=== PATIENT | male | born 1990 | race Caucasian/White ===

== ENCOUNTER 2018-11-06 03:09 | Emergency (ER) | payer SELFPAY ==
[~2018-11-06] VITALS: Ht 190.5 cm; Wt 127.0 kg
--- NOTE | 2018-11-06 04:07 | RAD ---
EXAM: CT HEAD WITHOUT IV CONTRAST CLINICAL HISTORY: Trauma, found down COMPARISON: None. TECHNIQUE: Routine CT of the head without contrast. Soft tissues and bone windows were reviewed. PQRS compliance statement - One or more of the following individualized dose reduction techniques were utilized for this study: 1. Automated exposure control 2. Adjustment of the mA and/or kV according to patient size 3. Use of iterative reconstruction technique FINDINGS: There is no evidence of hemorrhage, mass or extra-axial fluid collection. Fleming-white differentiation is maintained with no evidence of edema. There is no mass effect or shift of the intracranial structures. The ventricles, basilar cisterns and cortical sulci are normal in size and configuration for the patients stated age. The cerebellum and brainstem are unremarkable. The calvarium demonstrates no evidence of fracture or focal lesion. There is normal aeration of the visualized paranasal sinuses and mastoid air cells. The visualized portions of the orbits are normal. IMPRESSION: No evidence for acute intracranial process EXAM: CT CERVICAL SPINE WITHOUT IV CONTRAST CLINICAL HISTORY: COMPARISON: None available. TECHNIQUE: Helical CT of the cervical spine was performed. Axial, coronal and sagittal reformatted images were also performed. PQRS compliance statement - One or more of the following individualized dose reduction techniques were utilized for this study: 1. Automated exposure control 2. Adjustment of the mA and/or kV according to patient size 3. Use of iterative reconstruction technique FINDINGS: Vertebral body heights are preserved. Intervertebral disc heights are preserved. No evidence for acute fracture. No spondylolisthesis. IMPRESSION: 1. No evidence for acute fracture or subluxation. Electronically signed by: Elias Mason MD (11/06/2018 4:05 AM) [place] [id number]
--- NOTE | 2018-11-06 04:19 | PHYS DOC ---
Past Medical History Past Medical History: Unknown Past Surgical History: No Surgical History Alcohol Use: Heavy Drug Use: Marijuana Adult General Chief Complaint Chief Complaint: ALCOHOL INTOXICATION HPI HPI Patient is a 27 year old male presents brought in by ambulance with alcohol intoxication multiple bouts of alcohol were found around him he was laying on his front yard initial GCS was 5 a concerned bystander called current GCS is 14 no trauma was witnessed but the c-collar anyway Review of Systems Review of Systems liu by itnoxication Allergies Allergies Allergies Coded Allergies Type Severity Reaction Last Updated Verified No Known Drug Allergies 11/06/18 No Physical Exam Physical Exam Constitutional: Well developed, well nourished, intoxicated HENT: Normocephalic, atraumatic, bilateral external ears normal, oropharynx moist, no oral exudates, nose normal. [] Eyes: PERRLA, EOMI, conjunctiva normal, no discharge. [] Neck: in ccolar Cardiovascular:Heart rate regular rhythm, no murmur [] Lungs & Thorax: Bilateral breath sounds clear to auscultation [] no ches wall ttp noted Abdomen: Bowel sounds normal, soft, no tenderness, no masses, no pulsatile masses. [] Skin: Warm, dry, no erythema, no rash. [] Except for a small ecchymosis in the left mid forearm with no bony deformity Back: No tenderness, no CVA tenderness. [] Patient was rolled there was no trauma seen Extremities: No tenderness, no cyanosis, no clubbing, ROM intact, no edema. [] Neurologic: Alert and orientedx2, moving all extremities slurred speech consistent with known alcohol intake She also admitted to using marijuana Current Patient Data Vital Signs Vital Signs Date Time Temp Pulse Resp B/P (MAP) Pulse Ox O2 Delivery O2 Flow Rate FiO2 11/06/18 03:15 98.7 115 35 183/109 (133) 96 Room Air 98.7 EKG EKG [] Radiology/Procedures Radiology/Procedures [] Impressions: COMPARISON: None. TECHNIQUE: Routine CT of the head without contrast. Soft tissues and bone windows were reviewed. PQRS compliance statement - One or more of the following individualized dose reduction techniques were utilized for this study: 1. Automated exposure control 2. Adjustment of the mA and/or kV according to patient size 3. Use of iterative reconstruction technique FINDINGS: There is no evidence of hemorrhage, mass or extra-axial fluid collection. Fleming-white differentiation is maintained with no evidence of edema. There is no mass effect or shift of the intracranial structures. The ventricles, basilar cisterns and cortical sulci are normal in size and configuration for the patients stated age. The cerebellum and brainstem are unremarkable. The calvarium demonstrates no evidence of fracture or focal lesion. There is normal aeration of the visualized paranasal sinuses and mastoid air cells. The visualized portions of the orbits are normal. IMPRESSION: No evidence for acute intracranial process EXAM: CT CERVICAL SPINE WITHOUT IV CONTRAST CLINICAL HISTORY: COMPARISON: None available. TECHNIQUE: Helical CT of the cervical spine was performed. Axial, coronal and sagittal reformatted images were also performed. PQRS compliance statement - One or more of the following individualized dose reduction techniques were utilized for this study: 1. Automated exposure control 2. Adjustment of the mA and/or kV according to patient size 3. Use of iterative reconstruction technique FINDINGS: Vertebral body heights are preserved. Intervertebral disc heights are preserved. No evidence for acute fracture. No spondylolisthesis. IMPRESSION: 1. No evidence for acute fracture or subluxation. Electronically signed by: Elias Mason MD (11/06/2018 4:05 AM) [facility] DICTATED and SIGNED BY: ELIAS MASON MD DATE: 11/06/18 0405 Course & Med Decision Making Course & Med Decision Making Pertinent Labs and Imaging studies reviewed. (See chart for details) []ct imaging neg pt will be d/c when ambulatory likely etoh intoxication Dragon Disclaimer Dragon Disclaimer This electronic medical record was generated, in whole or in part, using a voice recognition dictation system. Departure Departure Impression: Primary Impression: Alcohol intoxication NILTON LOPEZ MD Nov 06, 2018 04:19
[2018-11-06 07:26] VITALS: BP 134/73
== END 2018-11-06 07:44 | disposition home or self-care (01) ==
LOC: ER 03:09
DX: F10.229 Alcohol dependence with intoxication, unspecified (principal); Y90.9 Presence of alcohol in blood, level not specified
CPT/HCPCS: 70450; 72125; 99284-25